=== PATIENT | male | born 1965 | race Caucasian/White ===

== ENCOUNTER → 2017-11-19 | Outpatient (CLI) | payer BC ==
[~2017-11-19] MED LIST: MULT-506 PO
--- NOTE | 2017-11-19 19:46 | DIAGNOSTIC IMAGING REPORT ---
RIGHT SHOULDER MRI HISTORY: Right shoulder pain. TECHNIQUE: Multiplanar multisequence MRI of the right shoulder was performed without contrast. COMPARISON STUDY: None. FINDINGS: AC joint: Mild AC joint arthrosis. 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 The tear measures approximately 13 mm in AP dimension. This is best seen on sagittal image 8. There is also thinning within the proximal subscapularis tendon suggestive of a partial undersurface tear. The infraspinatus and teres minor tendons are intact. Trace fluid within the subacromial/subdeltoid bursa. Mild fatty atrophy of the supraspinatus and subscapularis muscles. Labrum: Abnormal superior labrum consistent with a SLAP tear. Biceps: Mild tendinopathy within the proximal long head of the biceps tendon. Bones: No fracture or dislocation. Mild edema within the lateral humeral head likely due to the rotator cuff tear. Marginal osteophytes at the glenohumeral joint Cartilage: Mild cartilage thinning within the glenoid and humeral head. Miscellaneous: No significant joint effusion. IMPRESSION: 1. Focal full-thickness tear within the distal supraspinatus tendon. There is also a partial undersurface tear of the proximal subscapularis tendon. 2. SLAP tear. 3. 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 4. Mild biceps tendinopathy. 5. Os acromiale. Electronically signed by: Reed Almazan M.D. 11/19/2017 7:44 PM Dictated Date/Time: 11/19/2017 7:38 PM
== END | disposition home or self-care (01) ==
LOC: C.MRI 18:24
PROVIDERS: ATTEND Family Medicine
DX: M25.511 Pain in right shoulder (principal)